=== PATIENT | female | born 1945 | race Caucasian/White ===

== ENCOUNTER → 2016-09-04 | Outpatient (CLI) | payer MEDICARE, OTHER ==
[~2016-09-04] MED LIST: CALCIUM1 CAP PO; DYRENIUM 50MG C50 MG PO; FOSAMAX 70MG TA70 MG PO; GLUCOSAMINE CHO1 CA1 PO; GLUCOSAMINE500 M1 PO; MAXZIDE-25MG TA1 TAB PO; TOPROL XL 50MG50 MG PO; TOPROL XL100 MG PO
== END ==
LOC: MC.RAD 14:20
DX: Z12.31 Encounter for screening mammogram for malignant neoplasm of breast (principal); D48.62 Neoplasm of uncertain behavior of left breast

== ENCOUNTER → 2016-09-07 | Outpatient (CLI) | payer MEDICARE, OTHER | LOC: MC.RAD 10:21 | DX: R92.8 Other abnormal and inconclusive findings on diagnostic imaging of breast (principal); Z85.3 Personal history of malignant neoplasm of breast ==

== ENCOUNTER → 2016-10-17 | Outpatient (REF) ==
[2016-10-17 11:10] LABS: TOTAL IRON BINDING CAPACITY 351 ug/dL (265-497)
[2016-10-17 11:37] LABS: FERRITIN 46 ng/mL (11-264)
== END ==
LOC: ZLAB.WCH 10:37
PROVIDERS: Nurse Practitioner Family
DX: Z01.89 Encounter for other specified special examinations (principal)

== ENCOUNTER → 2016-11-14 | Outpatient (REF) | LOC: ZLAB.WCH 19:11 | DX: Z01.89 Encounter for other specified special examinations (principal) ==

== ENCOUNTER → 2017-03-13 | Outpatient (CLI) | payer MEDICARE, OTHER | LOC: MC.RAD 13:40 | DX: C50.919 Malignant neoplasm of unspecified site of unspecified female breast (principal); N63 Unspecified lump in breast ==

== ENCOUNTER → 2017-09-17 | Outpatient (CLI) | payer MEDICARE, OTHER | LOC: MC.RAD 08:36 | DX: D05.92 Unspecified type of carcinoma in situ of left breast (principal); Z85.3 Personal history of malignant neoplasm of breast ==

== ENCOUNTER 2018-04-15 13:06 | Day surgery (SDC) | payer MEDICARE ==
[~2018-04-15] VITALS: Ht 142.2 cm; Wt 93.2 kg
[~2018-04-15 13:06] MED LIST changes: -GLUCOSAMINE CHO1 CA1 PO; +GLUCOSAMINE/CHO1 CA5 PO; -MAXZIDE-25MG TA1 TAB PO; +OMEGA-3 FISH1000 MG PO; +PRINZIDE 25 MG-1 TAB PO; -TOPROL XL100 MG PO
[2018-04-15] MEDS ORDERED: OSCAL 500 TAB500 MG PO (13:30)
[2018-04-15] MEDS ORDERED: CRANBERRY 100 M1 SGL PO (13:30)
[2018-04-15 13:58] VITALS: BP 130/84; PULSE 68; TEMP 97.7
[2018-04-15 14:40] VITALS: BP 117/62; PULSE 68; TEMP 98.1
[2018-04-15 15:00] VITALS: BP 111/62; PULSE 71
== END 2018-04-15 15:40 | disposition home or self-care (01) ==
LOC: SDCO 13:06
DX: K52.831 Collagenous colitis (principal); K57.30 Diverticulosis of large intestine without perforation or abscess without bleeding; E66.01 Morbid (severe) obesity due to excess calories; Z68.41 Body mass index [BMI] 40.0-44.9, adult; Z87.440 Personal history of urinary (tract) infections; Z85.3 Personal history of malignant neoplasm of breast
CPT/HCPCS: J2250; J2405; J3010; J7030

== ENCOUNTER → 2018-10-18 | Outpatient (CLI) | payer MEDICARE ==
[~2018-10-18] MED LIST changes: +CRANBERRY 100 M1 SGL PO; +OSCAL 500 TAB500 MG PO
== END ==
LOC: MC.RAD 09:28
DX: D05.92 Unspecified type of carcinoma in situ of left breast (principal); Z98.890 Other specified postprocedural states; Z85.3 Personal history of malignant neoplasm of breast
CPT/HCPCS: G0279

== ENCOUNTER → 2019-12-23 | Outpatient (CLI) | payer MEDICARE, OTHER | LOC: MC.RAD 12:22 | DX: D05.92 Unspecified type of carcinoma in situ of left breast (principal); Z98.890 Other specified postprocedural states ==

== ENCOUNTER → 2020-12-27 | Outpatient (CLI) | payer MEDICARE, OTHER ==
[~2020-12-27] MED LIST changes: +ONE-A-DAY ESSE1 EACH PO; +ULTRAM 50MG TAB50 MG PO
== END ==
LOC: MC.RAD 12-23 14:15
DX: Z12.31 Encounter for screening mammogram for malignant neoplasm of breast (principal); N63.11 Unspecified lump in the right breast, upper outer quadrant; Z90.12 Acquired absence of left breast and nipple; Z92.3 Personal history of irradiation; Z98.890 Other specified postprocedural states

== ENCOUNTER → 2020-12-31 | Outpatient (CLI) | payer MEDICARE, OTHER | LOC: MC.RAD 12:49 | DX: N63.12 Unspecified lump in the right breast, upper inner quadrant (principal); Z85.3 Personal history of malignant neoplasm of breast ==

== ENCOUNTER → 2021-01-11 | Outpatient (CLI) | payer MEDICARE, OTHER | LOC: MC.RAD 09:44 | DX: D05.92 Unspecified type of carcinoma in situ of left breast (principal); N63.11 Unspecified lump in the right breast, upper outer quadrant; Z85.3 Personal history of malignant neoplasm of breast ==

== ENCOUNTER → 2021-02-01 | Outpatient (CLI) | payer MEDICARE, OTHER | LOC: MC.RAD 12:00 → COL.RAD 13:30 | DX: C50.411 Malignant neoplasm of upper-outer quadrant of right female breast (principal) | CPT/HCPCS: A9541; C1769 ==

== ENCOUNTER → 2021-02-02 | Day surgery (SDC) | payer MEDICARE, OTHER ==
[~2021-02-02] VITALS: Ht 142.2 cm; Wt 95.5 kg
[2021-02-02 11:16] VITALS: BP 151/71; PULSE 68; TEMP 97.6
[2021-02-02 14:40] VITALS: BP 128/62; PULSE 73; TEMP 97.7
--- NOTE | 2021-02-02 14:40 | NUR ---
Patient returned to [facility] via cart. Alert and oriented. Postop vital signs started. Patient agrees to try coffee and muffin. Will continue to monitor.
[2021-02-02 14:55] VITALS: BP 138/67; PULSE 74
--- NOTE | 2021-02-02 14:55 | NUR ---
Patient sitting up in bed, denies discomfort. Tolerating food and drink well. O2 turned off, stat remains arounf 95% on room air. Will continue to monitor.
[2021-02-02 15:10] VITALS: BP 140/68; PULSE 77
--- NOTE | 2021-02-02 15:10 | NUR ---
Patient sitting up in bed, denies discomfort. Tolerating food and drink well. Patient agrees to try to void as soon as she feels the need. Will continue to monitor.
[2021-02-02 15:33] VITALS: BP 128/62; PULSE 76
--- NOTE | 2021-02-02 15:45 | NUR ---
Patient up the bathroom, was able to void without difficulty. Discontinued IV with no complications. Instructed to dress and call for discharge.
--- NOTE | 2021-02-02 16:00 | NUR ---
Reviewed discharge instructions and education materials with patient and . Both verbalized understanding. Was unbale to make follow-up appointment with Varghese. Patient agrees to continue to call and make appointment.
--- NOTE | 2021-02-02 16:15 | NUR ---
Patient transfered to personal vehicle via wheel chair accompanied by .
== END ==
LOC: SDCO 09:13
DX: C50.411 Malignant neoplasm of upper-outer quadrant of right female breast (principal); Z17.0 Estrogen receptor positive status [ER+]; I10 Essential (primary) hypertension; M81.0 Age-related osteoporosis without current pathological fracture; J45.909 Unspecified asthma, uncomplicated; G47.33 Obstructive sleep apnea (adult) (pediatric); M19.90 Unspecified osteoarthritis, unspecified site; Z79.899 Other long term (current) drug therapy
CPT/HCPCS: A4648; J0690; J1100; J1885; J2250; J2405; J2704; J2795; J7120

== ENCOUNTER → 2021-12-30 | Outpatient (CLI) | payer MEDICARE, OTHER | LOC: MC.RAD 12-28 10:00 | DX: Z12.31 Encounter for screening mammogram for malignant neoplasm of breast (principal); Z85.3 Personal history of malignant neoplasm of breast ==

== ENCOUNTER → 2024-01-21 | Outpatient (CLI) | payer MEDICARE, OTHER | LOC: MC.RAD 14:29 | DX: Z12.31 Encounter for screening mammogram for malignant neoplasm of breast (principal) ==